=== PATIENT | male | born 1995 | race Caucasian/White ===

== ENCOUNTER 2016-12-24 04:24 | Emergency (ER) | payer OTHER ==
[~2016-12-24] VITALS: Ht 188 cm; Wt 78.4 kg
[~2016-12-24 04:24] MED LIST: BACTRIM,SEPT1 TABLET PO; GRALISE300 MG PO; KEFLEX500 MG PO; MORPHINE SULFAT15 M1 PO; NAPROSYN500 MG PO; OXYCODONE HCL10 MG PO; PANTOPRAZOLE SO40 MG PO; SEROPHENE50 MG PO; TIZANIDINE HCL2 MG PO
[2016-12-24 05:26] VITALS: BP 147/70
== END 2016-12-24 05:28 | disposition left against medical advice (07) ==
LOC: EME 04:24
DX: J18.9 Pneumonia, unspecified organism (principal)
CPT/HCPCS: 71020; 80053; 81003; 83605; 83690; 85027; 87040; 94640; 99281; 99282

== ENCOUNTER 2016-12-24 23:51 | Emergency (ER) | payer OTHER ==
[~2016-12-24] VITALS: Ht 188 cm; Wt 75.7 kg
[2016-12-25 01:09] VITALS: BP 158/82
== END 2016-12-25 01:10 | disposition home or self-care (01) ==
LOC: EME 23:51
PROC: 2W3FX1Z Immobilization of Left Hand using Splint (ICD-10-PCS; principal; 2016-12-25)
DX: S61.412A Laceration without foreign body of left hand, initial encounter (principal); W25.XXXA Contact with sharp glass, initial encounter
CPT/HCPCS: 73130; 99281; 99284

== ENCOUNTER 2016-12-29 16:11 | Emergency (ER) | payer OTHER ==
[~2016-12-29] VITALS: Ht 188 cm; Wt 76.0 kg
[2016-12-29 18:01] LABS: HEMATOCRIT 39.3 % (38.0-50.0); MCH 26.7 PG (29.0-34.0); MCHC 32.8 G/DL (30.0-36.0); MCV 81.4 FL (86-99); MEAN PLAT.VOLUME 9.2 uM^3 (9.0-12.4); PLATELET COUNT 265 K/uL (156-360); RBC DIS.WIDTH-CV 14.9 % (11.8-14.6); RED BLOOD COUNT 4.83 M/uL (4.00-5.50); WHITE BLOOD COUNT 8.7 K/uL (4.1-10.2)
[2016-12-29 18:18] LABS: CHLORIDE 106 mEq/L (99-109); POTASSIUM 3.7 mEq/L (3.7-5.4); SODIUM 141 mEq/L (136-147)
[2016-12-29 18:20] LABS: GLUCOSE 100 mg/dL (70-99)
[2016-12-29 18:21] LABS: ANION GAP 12 MEQ/L (2-14)
[2016-12-29 18:23] LABS: SERUM ETHYL ALCOHOL < 10 mg/dL
[2016-12-29 18:24] LABS: GFR ESTIMATE (CALCULATED) > 59 mL/min/
[2016-12-29 18:25] LABS: UREA NITROGEN (BUN) 18 mg/dL (9-23)
[2016-12-29 19:26] VITALS: BP 145/71
== END 2016-12-29 19:26 | disposition home or self-care (01) ==
LOC: EME 16:11
PROVIDERS: Emergency Medicine
DX: F43.20 Adjustment disorder, unspecified (principal); F19.10 Other psychoactive substance abuse, uncomplicated; F32.9 Major depressive disorder, single episode, unspecified
CPT/HCPCS: 80048; 81003; 85027; 90839; 99281; 99284; G0480

== ENCOUNTER 2017-08-29 10:55 | Inpatient (IN) | payer OTHER ==
[~2017-08-29] VITALS: Ht 190.5 cm; Wt 76.2 kg
[2017-08-29 11:42] LABS: BASOPHIL (%) 0.1 % (0-1); EOSINOPHIL (%) 0.1 % (0-5); HEMATOCRIT 43.3 % (38.0-50.0); HEMOGLOBIN 15.1 G/DL (12.5-16.6); IMMATURE GRANULOCYTE (%) 0.3 % (0.0-0.7); LYMPHOCYTE COUNT 1.1 K/uL (1.0-2.8); MCH 29.3 PG (29.0-34.0); MCHC 34.9 G/DL (30.0-36.0); MCV 83.9 FL (86-99); MONOCYTE (%) 6.6 % (3-12); MONOCYTE COUNT 0.5 K/uL (0-0.8); NEUTROPHIL (%) 76.9 % (45-76); NEUTROPHIL COUNT 5.4 K/uL (1.8-6.4); PLATELET COUNT 190 K/uL (156-360); RBC DIS.WIDTH-CV 13.2 % (11.8-14.6); RBC DIS.WIDTH-SD 41.3 % (39-53); RED BLOOD COUNT 5.16 M/uL (4.00-5.50)
[2017-08-29 11:50] LABS: APPEARANCE CLEAR ((CLEAR)); BILIRUBIN NEGATIVE; BLOOD NEGATIVE; GLUCOSE (STRIP) NEGATIVE; KETONES NEGATIVE; LEUKOCYTES NEGATIVE; NITRITE NEGATIVE; PROTEIN (STRIP) NEGATIVE; SPECIFIC GRAVITY 1.006 (1.000-1.030); UROBILINOGEN 0.2 MG/DL (0.2-1.0)
[2017-08-29 11:52] LABS: ALBUMIN 5.1 g/dL (3.2-4.8); CHLORIDE 109 mEq/L (99-109)
[2017-08-29 11:53] LABS: POTASSIUM 3.7 mEq/L (3.7-5.4); SODIUM 141 mEq/L (136-147)
[2017-08-29 11:55] LABS: GLUCOSE 99 mg/dL (70-99); TOTAL PROTEIN 7.9 g/dL (6.4-8.3)
[2017-08-29 11:57] LABS: COLOR PALE STRAW ((YELLOW))
[2017-08-29 11:57] LABS: TOTAL BILIRUBIN 2.1 mg/dL (0.0-1.0)
[2017-08-29 11:58] LABS: SERUM ETHYL ALCOHOL < 10 mg/dL
[2017-08-29 11:59] LABS: ALKALINE PHOSPHATASE 49 IU/L (3-129); GFR ESTIMATE (CALCULATED) > 59 mL/min/ (58.99-99999)
[2017-08-29 11:59] LABS: AMPHETAMINE NEGATIVE (500 ng/mL); BARBITURATES NEGATIVE (200 ng/mL); BENZODIAZEPINES NEGATIVE (150 ng/mL); BUPRENORPHINE NEGATIVE (10 ng/mL); COCAINE NEGATIVE (150 ng/mL); METHADONE NEGATIVE (200 ng/mL); METHAMPHETAMINE NEGATIVE (500 ng/mL); OPIATES (MORPHINE) NEGATIVE (100 ng/mL); OXYCODONE NEGATIVE (100 ng/mL); PHENCYCLIDINE NEGATIVE (25 ng/mL); PROPOXYPHENE NEGATIVE (300 ng/mL); THC CANNABINOIDS PRESUMPTIVE POSITIVE (50 ng/mL); TRICYCLIC ANTIDEPRESSANTS NEGATIVE (300 ng/mL)
[2017-08-29 12:00] LABS: AST (GOT) 40 IU/L (2-34); DIRECT BILIRUBIN 0.4 mg/dL (0.0-0.3)
[2017-08-29 12:01] LABS: UREA NITROGEN (BUN) 16 mg/dL (9-23)
[2017-08-29 12:02] LABS: SALICYLATE < 5.0 MG/DL (15-30)
[2017-08-29 12:03] LABS: ACETAMINOPHEN (TYLENOL) < 10 mcg/mL (10-30); ALT (GPT) 23 IU/L (3-49)
[2017-08-29 16:58] VITALS: BP 146/87
[2017-08-29 17:07] VITALS: BP 146/87
[2017-08-29] MEDS ORDERED: ABILIFY20 MG PO (17:38)
[2017-08-29] MEDS ORDERED: WELLBUTRIN100 MG PO (17:39)
[2017-08-30 07:40] VITALS: BP 145/78
[2017-08-30 17:24] VITALS: BP 134/62
[2017-08-31 08:24] VITALS: BP 146/97
[2017-08-31 13:40] VITALS: BP 117/58
[2017-08-31 18:09] VITALS: BP 145/83
[2017-09-01 08:07] VITALS: BP 140/67
[2017-09-01 16:50] VITALS: BP 192/89
[2017-09-02 07:35] VITALS: BP 153/73
[2017-09-02 10:00] VITALS: BP 139/63
[2017-09-02 14:12] LABS: HEPATITIS C ANTIBODY Nonreactive
[2017-09-02 15:38] VITALS: BP 149/67
[2017-09-03 08:56] VITALS: BP 126/73
[2017-09-03 15:34] VITALS: BP 143/76
[2017-09-04 07:28] VITALS: BP 1335/62
[2017-09-04 12:03] LABS: HEPATITIS B SURFACE ANTIGEN Nonreactive; HIV-1/2 AB/AG COMBO Nonreactive
[2017-09-04 15:42] VITALS: BP 138/87
[2017-09-05 07:22] VITALS: BP 129/58
[2017-09-05 07:58] LABS: SOURCE URINE
[2017-09-05 12:46] LABS: CHLAMYDIA TRACHOMATIS POSITIVE; NEISSERIA GONORRHOEAE NEGATIVE
[2017-09-05 16:00] VITALS: BP 132/74
[2017-09-06 07:43] VITALS: BP 104/55
[2017-09-06] MEDS ORDERED: BUSPAR10 MG PO (10:20)
[2017-09-06] MEDS ORDERED: DEPAKOTE500 MG PO (10:20)
[2017-09-06] MEDS ORDERED: DEPAKOTE250 MG PO (10:20)
[2017-09-06] MEDS ORDERED: ZIPRASIDONE HCL80 MG PO (10:20)
== END 2017-09-06 11:23 | disposition home or self-care (01) | DRG 885 ==
LOC: EME 10:55 → EDOF 13:40 → 1WEST 13:40 → ENRESERV 16:56 → 1WEST 16:57
PROVIDERS: Emergency Medicine; Psychiatry & Neurology Psychiatry
DX: F25.0 Schizoaffective disorder, bipolar type (principal); R45.851 Suicidal ideations; Z59.0 Homelessness; F84.0 Autistic disorder; R45.850 Homicidal ideations; F63.81 Intermittent explosive disorder; M41.9 Scoliosis, unspecified; F17.200 Nicotine dependence, unspecified, uncomplicated; Z91.5 Personal history of self-harm; F84.9 Pervasive developmental disorder, unspecified; Z78.1 Physical restraint status; F41.9 Anxiety disorder, unspecified; A56.8 Sexually transmitted chlamydial infection of other sites; F22 Delusional disorders
CPT/HCPCS: 80048; 80076; 80164; 81003; 84999; 85025; 86695 90; 86696 90; 86803; 87340; 87389; 87491; 87591; 90837; 93005; 97150 GO; 97166 GO; 99281; 99285; G0480; J1630; J2060; Q0177

== ENCOUNTER 2017-09-20 20:38 | Inpatient (IN) | payer OTHER ==
[~2017-09-20] VITALS: Ht 182.9 cm; Wt 80.4 kg
[~2017-09-20 20:38] MED LIST changes: +ABILIFY20 MG PO; +BUSPAR10 MG PO; +DEPAKOTE250 MG PO; +DEPAKOTE500 MG PO; +WELLBUTRIN100 MG PO; +ZIPRASIDONE HCL80 MG PO
[2017-09-20 21:34] LABS: HEMATOCRIT 39.2 % (38.0-50.0); HEMOGLOBIN 13.4 G/DL (12.5-16.6); MCH 29.5 PG (29.0-34.0); MCHC 34.2 G/DL (30.0-36.0); MCV 86.2 FL (86-99); PLATELET COUNT 200 K/uL (156-360); RBC DIS.WIDTH-CV 13.4 % (11.8-14.6); RBC DIS.WIDTH-SD 41.6 % (39-53); RED BLOOD COUNT 4.55 M/uL (4.00-5.50); WHITE BLOOD COUNT 6.3 K/uL (4.1-10.2)
[2017-09-20 21:46] LABS: ALBUMIN 4.4 g/dL (3.2-4.8); CHLORIDE 106 mEq/L (99-109); POTASSIUM 4.4 mEq/L (3.7-5.4); SODIUM 141 mEq/L (136-147)
[2017-09-20 21:49] LABS: GLUCOSE 96 mg/dL (70-99); TOTAL PROTEIN 6.8 g/dL (6.4-8.3)
[2017-09-20 21:51] LABS: TOTAL BILIRUBIN 0.6 mg/dL (0.0-1.0)
[2017-09-20 21:52] LABS: ALKALINE PHOSPHATASE 46 IU/L (3-129); SERUM ETHYL ALCOHOL < 10 mg/dL
[2017-09-20 21:53] LABS: CREATININE 0.9 mg/dL (0.6-1.3); GFR ESTIMATE (CALCULATED) > 59 mL/min/ (58.99-99999)
[2017-09-20 21:54] LABS: AST (GOT) 39 IU/L (2-34); UREA NITROGEN (BUN) 13 mg/dL (9-23)
[2017-09-20 21:55] LABS: ALT (GPT) 21 IU/L (3-49)
[2017-09-21 00:32] LABS: AMPHETAMINE NEGATIVE (500 ng/mL); BARBITURATES NEGATIVE (200 ng/mL); BENZODIAZEPINES NEGATIVE (150 ng/mL); BUPRENORPHINE NEGATIVE (10 ng/mL); COCAINE NEGATIVE (150 ng/mL); METHADONE NEGATIVE (200 ng/mL); METHAMPHETAMINE NEGATIVE (500 ng/mL); OPIATES (MORPHINE) NEGATIVE (100 ng/mL); OXYCODONE NEGATIVE (100 ng/mL); PHENCYCLIDINE NEGATIVE (25 ng/mL); PROPOXYPHENE NEGATIVE (300 ng/mL); THC CANNABINOIDS PRESUMPTIVE POSITIVE (50 ng/mL); TRICYCLIC ANTIDEPRESSANTS NEGATIVE (300 ng/mL)
[2017-09-21 02:16] VITALS: BP 143/64
[2017-09-21 06:52] VITALS: BP 127/58
[2017-09-21 15:47] VITALS: BP 122/58
[2017-09-22 08:05] VITALS: BP 129/60
== END 2017-09-22 10:00 | disposition home or self-care (01) | DRG 885 ==
LOC: EME 20:38 → EDOF 23:10 → 1WEST 23:10 → ENRESERV 23:28 → 1WEST 23:35
PROVIDERS: Emergency Medicine
DX: F25.0 Schizoaffective disorder, bipolar type (principal); R45.851 Suicidal ideations; Z91.14 Patient's other noncompliance with medication regimen; F84.0 Autistic disorder; M41.9 Scoliosis, unspecified; Z59.0 Homelessness; Z81.8 Family history of other mental and behavioral disorders; F17.200 Nicotine dependence, unspecified, uncomplicated
CPT/HCPCS: 80053; 80164; 84999; 85027; 90837; 97150 GO; 97165 GO; 99281; 99284; G0480